=== PATIENT | female | born 1970 | race Caucasian/White ===

== ENCOUNTER 2020-01-10 05:46 | Emergency (ER) | payer MEDICAID ==
[~2020-01-10] VITALS: Ht 167.6 cm; Wt 61.1 kg
[2020-01-10 05:48] VITALS: BP 118/55
[2020-01-10] MEDS ORDERED: METH-360 PO (06:31)
[2020-01-10] MEDS ORDERED: PRED20TA PO (06:31)
[2020-01-10] MEDS ORDERED: ketorolac tromethamine 15mg/ml inj. IM ONE (06:35)
[2020-01-10] MEDS ORDERED: dexamethasone 4mg tablet PO ONE (06:35)
== END 2020-01-10 07:07 | disposition home or self-care (01) ==
LOC: ER 05:47
DX: M54.41 Lumbago with sciatica, right side (principal); F12.90 Cannabis use, unspecified, uncomplicated; Z98.890 Other specified postprocedural states; Z56.0 Unemployment, unspecified; Z79.899 Other long term (current) drug therapy
CPT/HCPCS: 96372; 99283; J1885